=== PATIENT | male | born 1955 | race Caucasian/White ===

== ENCOUNTER 2017-02-06 13:01 | Emergency (ER) | payer MEDICARE ==
--- NOTE | ~2017-02-06 | ER ---
ADMIT: 02/06/2017 RM/LOC: ER [facility] MR#: [id number] [id number] [place], [place] [address] MARISSA JENNINGS [address] [place] [address] Emergency Room Report SEX: M AGE: 61 : 1955 DATE: 02/06/2017 TIME: 1301 hours. Please refer to my T-sheet for complete H and P. HISTORY OF PRESENT ILLNESS: Briefly, the patient is a 61-year-old, comes in with chest pain for 1 week, on and off, worse with exertion. It is substernal. He does feel short of breath and sweaty. He has a known history of coronary artery disease. He has 3 stents, the last of which was placed in June of 2016, quit smoking 3 weeks ago, has high blood pressure. PHYSICAL EXAMINATION: VITAL SIGNS: Blood pressure 153/90, pulse 69, respirations 14, temp 97.8, saturating 98%. GENERAL: No acute distress. HEENT: Grossly normal. LUNGS: Clear. HEART: Regular. ABDOMEN: Soft. SKIN: No rash. NEUROLOGIC: Alert and oriented, nonfocal. EMERGENCY DEPARTMENT COURSE: CBC was normal. Chemistries normal. Troponin negative. EKG was sinus rhythm, rate 65, no changes. Chest x-ray, no acute disease. We gave him 1 nitroglycerin, his pain resolved, we put half inch nitroglycerin paste. He was pain free, stable, and had 4 aspirin. I talked to [facility] consult for admission in the ER. ASSESSMENT: 1. Chest pain. 2. Coronary artery disease. 3. History of nicotine abuse. PLAN: Consult [facility] for admission to the emergency room. Taco Oliva MD/ radha JOB #: [id number] CC: Taco Oliva MD, Attending Physician UNKNOWN, Family Physician Sanjay Sims MD
[~2017-02-06 13:01] MED LIST: ASA CHILDREN'S81 MG PO; BRILINTA90 MG PO; COZAAR DPS25 MG PO; DESYREL-DPS50 MG PO; FLONASE 0.05% D16 GM NS; HABITROL DPS21 MG TP; LIPITOR40 MG PO; MAALOX DPS30 ML PO; MELATONIN3 MG PO; METOPROLOL TART25 MG PO; NITROSTAT0.4 MG SL; PRILOSEC DPS20 MG PO; PROZAC40 MG PO; SEROQUEL XR150 MG PO; SURFAK DPS240 MG PO; TRICOR145 MG PO; TYLENOL DPS325 MG PO; XANAX DPS0.25 MG PO
--- NOTE | 2017-02-11 07:21 | ER ---
ADMIT: 02/06/2017 RM/LOC: ER [facility] MR#: [id number] [address] [address] MARISSA JENNINGS [address] [place] [address] Emergency Room Report SEX: M AGE: 61 : 1955 DATE: 02/06/2017 TIME: 1301 hours. Please refer to my previous dictation and T-sheet for complete H and P. Briefly, Marissa was going to get admitted when Dr. Sims of [facility] came down, evaluated in the Emergency Department, thinks it is okay for him to go home. He will follow him up as an outpatient. ASSESSMENT: Unchanged. 1. Chest pain. 2. Known coronary artery disease. 3. History of nicotine abuse. PLAN: Follow up as an outpatient with [facility]. Taco Oliva MD/ radha JOB #: [id number] CC: Taco Oliva MD, Attending Physician UNKNOWN, Family Physician . [facility]
--- NOTE | 2017-02-19 14:03 | CO ---
ADMIT: 02/06/2017 RM/LOC: [facility] MR#: [id number] [address] [address] MARISSA JENNINGS [address] [place] [id number] Consultation SEX: M AGE: 61 : 1955 DATE OF CONSULTATION: 02/06/2017 ATTENDING PHYSICIAN: Taco Oliva CONSULTING PHYSICIAN: Sanjay Sims MD REASON FOR CONSULT: Chest pain and headache. HISTORY OF PRESENT ILLNESS: Ed is a very nice 61-year-old with mental illness and known coronary disease. I initially met him in May of 2016 when he presented with an acute inferior ST-elevation myocardial infarction. His right coronary was occluded. We stented a long segment with drug-eluting stents and restored ISABEL-3 flow. His LV function has been preserved. He presented in June for a staged procedure of the LAD. Ever since then, he has continued to have some ongoing symptoms including a headache, a flushed feeling, some left chest discomfort described as a bruising sensation. He was very short of breath and insisted it was the Brilinta. He has eventually been changed to Effient. He has also been admitted to [facility] since that time with acute decompensation. He went to [facility] today. He was describing all his ongoing symptoms. Apparently, they were concerned enough to have him evaluated in the emergency room. He says he feels fine now. He was flushed on Sunday. He continues to have some on and off chest discomfort. He thinks it is additional aspirin that has helped him. He has been taking his medications, although it is not clear exactly what all his medications are. He has not been taking statins because of potential side effects. His enzymes are negative. His EKG is unremarkable. PAST MEDICAL HISTORY: ALLERGIES: Possible allergy to Brilinta, which caused marked shortness of breath. ILLNESSES: Include bipolar disorder, coronary artery disease, gastroesophageal reflux disease. He has a debilitating neuropathy, fibromyalgia, anxiety, and hyperlipidemia. He does not have any significant surgical history. MEDICATIONS: 1. Wellbutrin XL 1 tab daily. 2. Seroquel XL. 3. Simvastatin 40 daily. 4. Ranexa 500 b.i.d. 5. Nitroglycerin p.r.n. 6. Lorazepam 1 tab 3 times daily as needed. 7. Effient 10 daily. 8. Celexa as needed. 9. Aspirin 81 daily. 10.Apparently, he is waiting on Zetia. FAMILY HISTORY: He has a brother, who at age 58 of unknown causes. Father had emphysema, and his mother had Alzheimer's. ADMIT: 02/06/2017 RM/LOC: [facility] MR#: [id number] [address] [address] MARISSA JENNINGS [address] [place] [address] Consultation SEX: M AGE: 61 : 1955 SOCIAL HISTORY: He quit smoking after his heart attack. He is disabled from his mental illness and fibromyalgia. He does not have any history of illicit drug use. He is a routine coffee drinker. REVIEW OF SYSTEMS: A full 10-point review of systems was reviewed with the patient and noncontributory, although several positives not contributory to his initial presentation. PHYSICAL EXAMINATION: VITAL SIGNS: His blood pressure is 126/72, pulse of 62 and regular, he is afebrile, and respirations 18. SKIN: Mildly pale, warm and dry. EYES: Sclerae clear. No xanthelasmas. ENT: Oral mucosa is pink and moist. No jugular venous distention or carotid bruits. HEART: Distant. Normal S1, S2. No murmurs, rubs or gallops. CHEST: Poor air movement throughout, but no wheezes, rhonchi, or crackles. ABDOMEN: Soft and nontender. MUSCULOSKELETAL: Gait is normal. EXTREMITIES: Peripheral pulses palpable. No clubbing, cyanosis or edema. PSYCHIATRIC: He is alert and oriented. He is in good humor, laughing, and in no acute distress. LABORATORY DATA: Potassium is 4.0, creatinine is 1.3, magnesium is 2.0, CK is 93, MB is 0.6, troponin less than 0.15. White count is 8.1, hemoglobin 14.3, and platelet count 239,000. EKG shows normal sinus rhythm with no acute ischemic EKG changes. Chest x-ray shows normal heart size. There is some hyperinflation, but no acute pulmonary vascular congestion. IMPRESSION: 1. Noncardiac chest pain. 2. Known coronary artery disease. 3. Fibromyalgia. 4. Bipolar disorder. ADMIT: 02/06/2017 RM/LOC: [facility] MR#: [id number] [address] [place] [id number] MARISSA JENNINGS [address] [place] [address] Consultation SEX: M AGE: 61 : 1955 RECOMMENDATIONS: His symptoms are very atypical. He does not appear acutely ill. His enzymes and EKG are unremarkable. There is nothing new here. This has been ongoing for Ed for months. I question whether we are going to have to do another coronary angiography, but ultimately, I feel strongly that this is not recurrent angina and to do another heart catheterization would put him at undue risk. I gave him plenty of reassurance today. He is on a good antianginal regimen. He should continue his dual antiplatelet therapy. He would like to increase his aspirin to 162 mg daily, which I think is fine. We will see him back in the office in a couple weeks, and if there continue to be ongoing and lingering symptoms, we may ultimately have to repeat his coronary angiography, but at this point, I just do not think he is having angina. He has a multitude of symptoms with no specific or distinct cardiac etiology. Sanjay Sims MD/ radha JOB #: [id number] CC: Taco Oliva, Attending Physician UNKNOWN, Family Physician
[2017-07-24] MEDS ORDERED: ZETIA10 MG PO (14:49)
[2017-07-24] MEDS ORDERED: ATIVAN-DPS1 MG PO (14:50)
[2017-07-24] MEDS ORDERED: OMNICEF DPS300 MG PO (14:51)
[2017-07-24] MEDS ORDERED: EFFIENT10 MG PO (14:52)
[2017-07-24] MEDS ORDERED: VIBRAMYCIN-DPS100 M2 PO (14:52)
[2017-07-24] MEDS ORDERED: RANEXA500 MG PO (14:52)
[2017-07-24] MEDS ORDERED: ZYRTEC DPS10 MG PO (14:54)
[2017-07-24] MEDS ORDERED: AMLODIPINE BES2.5 MG PO (14:54)
[2017-07-24] MEDS ORDERED: ONE DAILY MULT1 EAC1 PO (14:55)
[2017-07-24] MEDS ORDERED: BENICAR20 MG PO (14:55)
[2017-07-24] MEDS ORDERED: CARAFATE1 GM PO (14:55)
[2017-07-24] MEDS ORDERED: VENTOLIN HFA8 GM IH (14:56)
[2017-07-24] MEDS ORDERED: ASA CHILDREN'S81 MG PO (14:56)
[2017-07-24] MEDS ORDERED: COLACE-DPS100 MG PO (14:57)
[2017-07-24] MEDS ORDERED: TYLENOL DPS325 MG PO (14:57)
[2017-07-24] MEDS ORDERED: TYLENOL EXTRA500 M1 PO (14:57)
== END 2017-02-06 15:52 | disposition home or self-care (01) ==
LOC: ER 13:01
DX: I25.10 Atherosclerotic heart disease of native coronary artery without angina pectoris (principal); I10 Essential (primary) hypertension; F32.9 Major depressive disorder, single episode, unspecified; Z87.891 Personal history of nicotine dependence; Z98.890 Other specified postprocedural states; Z79.899 Other long term (current) drug therapy; Z88.8 Allergy status to other drugs, medicaments and biological substances

== ENCOUNTER 2017-04-18 11:49 | Emergency (ER) | payer MEDICARE ==
--- NOTE | 2017-04-20 02:42 | ER ---
ADMIT: 04/18/2017 RM/LOC: ER [facility] MR#: [id number] [address] [facility] [address] [place], [place] [address] MARISSA JENNINGS [address] [place] [address] Emergency Room Report SEX: M AGE: 61 : 1955 DATE: 04/18/2017 TIME: 1149 hours. Please refer to my T-sheet for complete H and P. HISTORY OF PRESENT ILLNESS: Briefly, the patient is a 61-year-old, who comes in with vague complaints of weakness, not feeling well. He felt great when he woke up this morning, and then he when out in the heat, and was getting ready to mow the lawn when he started feeling ill. He says he normally smokes and has not for 2 days, and feels just not himself. PHYSICAL EXAMINATION: VITAL SIGNS: Blood pressure 191/97, pulse 56, respirations 13, temp 97.6. GENERAL: He is no acute distress. HEENT: Grossly normal. LUNGS: Clear. HEART: Regular. ABDOMEN: Soft. SKIN: No rash. NEUROLOGIC: Alert and oriented. Nonfocal. EMERGENCY DEPARTMENT COURSE: We gave him two Ativan IM, clonidine 0.1 p.o. His blood pressures improved. His EKG is sinus rhythm, no acute changes. I talked to them, they just had started lisinopril yesterday, he is going to start that second dose tonight. He feels much better. ASSESSMENT: 1. Hypertension. 2. Anxiety. 3. Nicotine withdrawal. PLAN: Continue to not smoke. Return if worse. Fluids. Use medications as directed. Follow up with [facility] and [facility]. Taco Oliva MD/ radha JOB #: [id number] CC: Taco Oliva MD, Attending Physician Gianni Archibald MD, Family Physician . [facility]
[2017-07-24] MEDS ORDERED: ZETIA10 MG PO (14:49)
[2017-07-24] MEDS ORDERED: ATIVAN-DPS1 MG PO (14:50)
[2017-07-24] MEDS ORDERED: OMNICEF DPS300 MG PO (14:51)
[2017-07-24] MEDS ORDERED: VIBRAMYCIN-DPS100 M2 PO (14:52)
[2017-07-24] MEDS ORDERED: RANEXA500 MG PO (14:52)
[2017-07-24] MEDS ORDERED: EFFIENT10 MG PO (14:52)
[2017-07-24] MEDS ORDERED: AMLODIPINE BES2.5 MG PO (14:54)
[2017-07-24] MEDS ORDERED: ZYRTEC DPS10 MG PO (14:54)
[2017-07-24] MEDS ORDERED: ONE DAILY MULT1 EAC1 PO (14:55)
[2017-07-24] MEDS ORDERED: CARAFATE1 GM PO (14:55)
[2017-07-24] MEDS ORDERED: BENICAR20 MG PO (14:55)
[2017-07-24] MEDS ORDERED: VENTOLIN HFA8 GM IH (14:56)
[2017-07-24] MEDS ORDERED: ASA CHILDREN'S81 MG PO (14:56)
[2017-07-24] MEDS ORDERED: TYLENOL EXTRA500 M1 PO (14:57)
[2017-07-24] MEDS ORDERED: TYLENOL DPS325 MG PO (14:57)
[2017-07-24] MEDS ORDERED: COLACE-DPS100 MG PO (14:57)
== END 2017-04-18 13:36 | disposition home or self-care (01) ==
LOC: ER 11:49
DX: I10 Essential (primary) hypertension (principal); F41.9 Anxiety disorder, unspecified; K21.9 Gastro-esophageal reflux disease without esophagitis; F32.9 Major depressive disorder, single episode, unspecified; F17.210 Nicotine dependence, cigarettes, uncomplicated